=== PATIENT | female | born 1995 | race Caucasian/White ===

== ENCOUNTER 2025-09-25 12:47 | Outpatient (CLI) | payer BC, SELFPAY ==
--- NOTE | 2025-09-25 13:00 | CRLHL7_ITS ---
For Patients: As a result of the Century Cures Act, medical imaging exams and procedure reports are released immediately into your electronic medical record. You may view this report before your referring provider. If you have questions, please contact your health care provider. Indication: Unspecified intracranial injury with loss of consciousness. Technique: Multiplanar multisequence noncontrast MR images of the brain. Comparison: None. Findings: The ventricles and sulci are within normal limits for patient age. No mass effect or midline shift. No parenchymal signal abnormalities. No intracranial hemorrhage or pathologic extra-axial fluid collection. No diffusion restriction to suggest acute infarction. The major arterial flow voids of the skull base are preserved. Globes are symmetric. Minimal paranasal sinus mucosal thickening. The mastoid air cells are clear. Left temporomandibular joint degenerative changes associated with and reactive joint effusion. Impression: 1. No intracranial abnormality on this noncontrast exam. 2. Left temporomandibular joint degenerative changes associated with marrow edema and reactive joint effusion. Dictated by Neil Wahl MD @ 09/25/2025 5:22:04 PM (Electronically Signed)
--- NOTE | 2025-09-25 13:45 | CRLHL7_ITS ---
For Patients: As a result of the Century Cures Act, medical imaging exams and procedure reports are released immediately into your electronic medical record. You may view this report before your referring provider. If you have questions, please contact your health care provider. Indication: Unspecified intracranial injury with loss of consciousness. Technique: Multiplanar multisequence noncontrast MR images of the cervical spine. Comparison: None. Findings: Mild leftward cervical curvature. Mild reversal of the cervical lordosis. Vertebral heights maintained. No acute fracture or spondylolisthesis. No T1 hypointense lesions or marrow edema. The cervical cord is normal in signal intensity. C2-3 through C4-5: No spinal canal or neural foraminal narrowing. C5-6: Mild disc degeneration. Shallow, broad-based right central disc extrusion demonstrating caudal migration measuring 2 mm in short axis indents the cord and mildly narrows the spinal canal. No neural foraminal narrowing. C6-7: Disc degeneration. Annular bulge. No spinal canal or neural foraminal narrowing C7-T1: No spinal canal or neural foraminal narrowing. Impression: 1. At C5-6, shallow right central disc extrusion indents the cord and mildly narrows the spinal canal. 2. Mild reversal of the cervical lordosis. Dictated by Neil Wahl MD @ 09/25/2025 5:25:18 PM (Electronically Signed)
== END 2025-09-25 12:48 | disposition home or self-care (01) ==
LOC: MRI 12:48
PROVIDERS: PCP Family Medicine; Visit Provider Family Medicine
DX: S06.9XAA Unspecified intracranial injury with loss of consciousness status unknown, initial encounter (principal); M50.222 Other cervical disc displacement at C5-C6 level
CPT/HCPCS: 70551; 72141

== ENCOUNTER 2025-10-01 23:41 | Emergency (ER) | payer BC, SELFPAY ==
--- OUTSIDE RECORDS SUMMARY | 2025-10-01 23:44 | XMS_ITS | Clinical Summary ---
Author Organization [facility] Address [address] [place] [address] Care Team Providers Care Manager Oracle Database Name Role Phone Peter Bueno MD Primary Care Provider [phone] Allergies Active AllergyReactionsCriticalityNoted DateCommentsCitalopramMental Status Hgjbzq5107/22/2013 Anger and aggressiveness Nsaids (Non-Steroidal Anti-Inflammatory Drug)Other - Describe In Comment Field 09/04/2017 H/o gypsy-n-y gastric bypass. AVOID NSAIDs and aspirin due to risk of gastric and/or G-J anastomotic ulcers. If Tresa must be on short course of NSAIDs or aspirin, use enteric coated if possible and use PPI // Kourtney Price RN, Bariatric Nurse Clinician, [facility] 09/04/2017 [facility] Comment: H/o gypsy-n-y gastric bypass. AVOID NSAIDs and aspirin due to risk of gastric and/or G-J anastomotic ulcers. If Tresa must be on short course of NSAIDs or aspirin, use enteric coated if possible and use PPI // Kourtney Price RN, Bariatric Nurse Clinician, [facility] 09/04/2017 ; [facility] Reaction: Other - Describe In Comment Field Medications * This document contains information received from the source organization and may not represent a complete record from that organization. MedicationSigDispense QuantityRefillsLast FilledStart DateEnd DateStatus cloNIDine HCL 0.2 mg tablet Indications:Insomnia, unspecified typeTake 1 Tablet (0.2 mg) by mouth at bedtime. 30 Tablet 5Active Additional Information Patient not taking.Reported on 10/01/2025 melatonin 3 mg tablet Indications:Insomnia, idiopathicTAKE TWO TABLETS BY MOUTH EVERY EVENING AT BEDTIME 60 Tablet 5Active venlafaxine (EFFEXOR) 75 mg tablet Indications:KRISTY (generalized anxiety disorder),Depression, unspecified depression typeTake 1 Tablet (75 mg) by mouth two times daily. 60 Tablet 1105Active Additional Information Patient not taking.Reported on 10/01/2025 omeprazole (PRILOSEC) 40 mg Delayed-Release capsule Indications:Chronic GERDTake 1 Capsule (40 mg) by mouth once daily. 60 Capsule 5Active buPROPion HCL (smoking deter) 150 mg Tb12 Indications:Depression, unspecified depression typeTake 1 Tablet (150 mg) by mouth two times daily. Due for an office visit for further refills. Please call the clinic to schedule an appointment. 60 Tablet 5Active hydrOXYzine HCL (ATARAX) 25 mg tablet Indications:Depression, unspecified depression typeTake 1 Tablet (25 mg) by mouth three times daily. Due for an office visit for further refills. Please call the clinic to schedule an appointment. 90 Tablet 5Active hydrOXYzine HCL (ATARAX) 25 mg tablet Indications:Depression, unspecified depression typeTake 1 Tablet (25 mg) by mouth three times daily. Due for an office visit for further refills. Please call the clinic to schedule an appointment. 90 Tablet Discontinued(Reorder (E-cancel not sent)) buPROPion HCL (smoking deter) 150 mg Tb12 Indications:Depression, unspecified depression typeTake 1 Tablet (150 mg) by mouth two times daily. Due for an office visit for further refills. Please call the clinic to schedule an appointment. 60 Tablet Discontinued(Reorder (E-cancel not sent))Hospital, Clinic, or Other Facility Administered MedicationOrdered DoseRouteFrequencyStart DateEnd DateStatus levonorgestrel intrauterine device 1 Device (MIRENA) Indications:Evaluation regarding contraception options1 DeviceIUQ 5 YEARS 11/01/2017Active Active Problems Patient Care Coordination No te Formatting of this note migh t be different from the original. Nutrition order entered on 11/26/2017. Weight Management Manual Given 06/02/2016 Rosmery Mo, MS, RD, LD ProblemNoted DateDiagnosed DateAlcohol use disorder, moderate, in early aqwhntstz20/31/9847Aehgjyqissmp64/13/2017Vitamin B 12 oblyxrcqar21/13/2017S/P gastric qvtbae5008/31/2017Heavy apqveoz4908/05/2014Depression Resolved Problems ProblemNoted DateDiagnosed DateResolved DateEncounter for insertion of Mirena IUD Overview (11/01/2017): Placed 18 Morbid obesity with BMI of 40.0-44.9, adult Encounters DateTypeDepartmentCare DlljDcctolfgsae56/10/2025 2:40 PM CSTOffice Visit [place] [id number] [facility] [place] [address] Peter Bueno MD Follow Up (ED Follow up)10/01/2025 - 10/01/2025 7:20 PM [facility] [address] [place] [address] 10/01/20259764Lppcdp54/07/2025 10:01 PM WINDOWS MOBILE DEVELOPER - 09/28/2025 10:43 PM [facility] [address] [place] [address] Mary Gomes MD Right sided numbness (Primary Dx); Word finding difficulty Discharge Disposition: Home Self Care09/28/20252594Wljxup91/10/2025 9:00 AM WINDOWS MOBILE DEVELOPER Telemedicine [facility] [address] [place] [address] Peter Bueno MD Follow Up (1 month follow up)09/01/20254787Oqilte93/06/2025 10:40 AM CDTOffice Visit [facility] [address] [place] [address] Peter Bueno MD Medication Auzrmzaqnf98/06/5605Mgufpi79/03/2025Refill [facility] [address] [place] [address] Peter Bueno MD Refill Request (Bupropion Hcl (Smoking Deter), Hydroxyzine Hcl)07/11/2025Refill [facility] [address] [place] [address] Peter Bueno MD Refill Request (Melatonin)from Last 3 Months Immunizations ImmunizationAdministration DatesNext JegKVoB2505/01/2001,09/22/1997,1996, 1996,1996HIB HbOC (HibTITER)1996,1996,1996 Hepatitis A (Peds)08/05/2014,01/22/2014Hepatitis B (Adult)09/27/2017Hepatitis B (Peds)1996,1996,1996Hepatitis B, Uxcurdhrbea33/03/1997, 1996,1996Hib Conjugate, Isgelynadeq55/01/1997,1996,1996, 1996Human Papilloma Virus Quclfdt8701/22/2014,07/23/2013,01/25/2013 Inactivated Polio Mzcvoye1906/26/2001Influenza, ULM104/09/2019,08/29/2017, 09/07/2016,08/05/2014,07/23/2013Influenza, IIV4 (Age 6-35 Mos)07/05/2018, 07/23/2013MMR05/01/2001,09/22/1997Meningococcal Vaccine (Menactra)01/22/2014Oral Polio Kjmoeyw9711/25/1996,1996,1996Polio Virus, Ewbeqkhdipm04/04/2001, 1996,1996,1996Tdap110/29/2016,07/18/2007Tuberculin (PPD) 02/03/2016,12/14/2015Varicella Scdubpp6207/18/2007,05/28/2007,07/30/1997, 05/28/1997 Family History Medical HistoryRelationNameCommentsPsychiatric illnessBrother 1Depression Psychiatric illnessBrother 2DepressionDiabetesFatherGood HealthFather HyperlipidemiaFatherHypertensionFatherHeart DiseaseMaternal Grandfather HyperlipidemiaMaternal GrandfatherHypertensionMaternal GrandfatherHeart Disease Maternal GrandmotherHyperlipidemiaMaternal GrandmotherHypertensionMaternal GrandmotherPsychiatric illnessMotherDepressionHyperlipidemiaPaternal Grandfather HypertensionPaternal GrandfatherStrokePaternal GrandfatherDiabetesPaternal GrandmotherHyperlipidemiaPaternal GrandmotherHypertensionPaternal Grandmother RelationNameStatusCommentsBrother 1Brother 2Brother 3FatherMaternal Grandfather Maternal GrandmotherMotherPaternal GrandfatherPaternal Grandmother Social History Tobacco UseTypesPacks/DayYears UsedDateSmoking Tobacco: FormerCigarettes0.5 06/21/2015 - 12/21/2015Passive Smoke Exposure: PastSmokeless Tobacco: Never Tobacco Cessation:Counseling Given: Not Answered Comments:1 pack/ month Alcohol UseStandard Drinks/WeekCommentsNot Currently0 (1 standard drink = 0.6 oz pure alcohol)PHQ-2AnswerDate RecordedPHQ-2 TOTAL GQODK305Social ConnectionsAnswerDate RecordedDo you often feel lonely or isolated from those around you?Financial Resource StrainAnswerDate RecordedDifficulty of Paying Living Loaxiewz934/06/2025Difficulty of Paying Living Fiiqxhjh548/06/2025 Food InsecurityAnswerDate RecordedDo you worry your food will run out before you are able to buy more?Transportation NeedsAnswerDate RecordedDoes lack of transportation keep you from medical appointments?Does lack of transportation keep you from work, meetings or getting things that you need?1 07/28/2025Housing StabilityAnswerDate RecordedWhat is your housing situation today?Interpersonal SafetyAnswerDate RecordedAre you being hit, kicked, pushed or yelled at (see row info)?No09/28/2025Interpersonal Safety Abuse 12 - 18Not on file09/28/2025Interpersonal Safety Ambulatory Vulnerability Not on file09/28/2025UtilitiesAnswerDate RecordedDo you have trouble paying for utilities (for example, heat, electricity, water, phone)? CommentsNoSex and Gender InformationValueDate RecordedSex Assigned at BirthNot on fileLegal BcqVhoqcb14/25/2013 11:24 PM CDTGender IdentityNot on fileSexual OrientationNot on file Obstetrics History GravidaParaTermPretermABIABSABEctopicMultipleLivingLive [id number] OutcomeGATotal LaborLabor/2nd/6uhXfaikiJroWfoqTijkWCZKnhL7I0CjyiOivoQghizci Last Filed Vital Signs Vital SignReadingTime TakenCommentsBlood Utqzlxtm915/7210/01/2025 3:08 PM WINDOWS MOBILE DEVELOPER Ntkuf70704/10/2025 3:08 PM RUVBckttsfrofh25.7 ??C (98 ??F)10/01/2025 3:08 PM WINDOWS MOBILE DEVELOPER Respiratory Pupi022010/01/2025 3:08 PM CSTOxygen Whkywxytsf51%10/01/2025 3:08 PM CSTInhaled Oxygen Concentration--Mrxbao01.6 kg (160 lb)09/28/2025 10:28 PM WINDOWS MOBILE DEVELOPER Eeytru539 cm (5' 3)09/28/2025 10:28 PM CSTBody Mass Index28.34111/29/2024 10:28 PM WINDOWS MOBILE DEVELOPER Plan of Treatment Health MaintenanceDue DateLast DoneCommentsPneumococcal series for age 6-49 (1 of 2 - PCV)2015COVID-19 vaccine series (1 - 2024- season)2025 Influenza Vaccine (#1), 07/05/2018, 08/29/2017, Additional history existsBMI (ht and wt on same day) for age 18+06/09/426268/06/2025, 01/07/2025, 12/13/2024, Additional history existsDepression screening for age 12+61, 03/14/2025, 02/15/2025, Additional history exists Tetanus wfwricy68/07/960234/04/2017, 07/18/2007Pap test for age 21-65012/13/2027 12/13/2024, 12/13/2024, 11/01/2017HPV series for age 9-88Zgmykhjcl62/02/2014, 07/23/2013, 01/25/2013Hepatitis B series for 19+Maaihtmdh71/06/2017, 1996, 1996, Additional history existsHIV for age 15-36Wcnfmjxrb58/25/2025, 10/23/2019 ([facility]Hepatitis C screening for age 18-79 Ftgxtkked56/25/2025, 10/23/2019 ([facility] Medical Devices ImplantedTypeAreaManufacturerDevice IdentifierShelf Expiration DateModel / Serial / LotMesh Ventral 45 Seam[employer] [place] - [id number] Implanted:Qty: 3 on 08/31/2017 by April, [facility]: AbdomenW L [id number]# / / [id number] Procedures Procedure NamePriorityDate/TimeAssociated DiagnosisCommentsBASIC METABOLIC PANEL Xbggzcy3907/28/2025 11:10 AM CDT S/P gastric bypass VITAMIN B1 (THIAMINE) HUWRMCqqmzvc44/06/2025 11:10 AM CDT S/P gastric bypass VITAMIN N25Bzrbpgt84/06/2025 11:10 AM CDT S/P gastric bypass VITAMIN D 25 (DEFICIENCY)Idrnnsm3207/28/2025 11:10 AM CDT S/P gastric bypass HLIOKFTFYhumltv78/06/2025 11:10 AM CDT S/P gastric bypass BKBAZVXTEGCvqrkbf33/06/2025 11:10 AM CDT S/P gastric bypass ANTI HIV 1/6Clhxwbl84/25/2025 3:35 PM CDT Routine screening for STI (sexually transmitted infection) ANTI WTSObylsnr35/25/2025 3:35 PM CDT Routine screening for STI (sexually transmitted infection) HPV HIGH CKYKZrtqbfd88/21/2025 3:40 PM WINDOWS MOBILE DEVELOPER Screening for cervical cancer from Last 3 Months or Most Recently Relevant to Health Maintenance Results * VITAMIN B1 (THIAMINE) BLOOD (07/28/2025 11:10 AM CDT)ComponentValueRef Range Test MethodAnalysis TimePerformed AtPathologist SignatureVITAMIN B1 WHL BLD 196.166.5 - 200.0 nmol/L1 9:08 AM CDTLABCORP [facility])Specimen (Source)Anatomical Location / Laterality Collection Method / VolumeCollection TimeReceived TimeBloodBLOOD SPECIMEN / UnknownVenipuncture / Udtipya3107/28/2025 11:10 AM CDT1 11:[address] [facility] ([facility]) - 08/03/2025 9:08 AM CDT Test(s) 053093-Ezw. B1, Whole Blood was developed and its performance characteristics determined by [facility]. It has not been cleared or approved by the Food and Drug Administration. Performed at: ??[address] - [address] ??[id number] Dance Hall Hostess: Stacy Hampton MD, Phone: ??[phone] Authorizing ProviderResult TypeResult StatusPeter Bueno MDSEND OUTSFinal ResultPerforming OrganizationAddressCity/State/ZIP CodePhone Number [facility] ([facility] [address] [place] [address], * VITAMIN D 25 (DEFICIENCY) (07/28/2025 11:10 AM CDT)ComponentValueRef RangeTest MethodAnalysis TimePerformed AtPathologist SignatureVITAMIN D TOTAL52.430.0 - 100.0 ng/mL07/28/2025 3:00 PM [facility] LABORATORYSpecimen (Source) Anatomical Location / LateralityCollection Method / VolumeCollection Time Received TimeBloodBLOOD SPECIMEN / UnknownVenipuncture / Spuqhui7607/28/2025 11:10 AM CDT1 11:13 AM CDT Narrative [facility] - 07/28/2025 3:00 PM CDT Deficiency: < 20 ng/mL ? Insufficiency: ? 20 - 30 ng/mL ? Optimum Level: ? 30 - 100 ng/mL ?? Possible Toxicity: > 100 ng/mL Authorizing ProviderResult TypeResult StatusPeter Bueno MDSEND OUTSFinal ResultPerforming OrganizationAddressCity/State/ZIP CodePhone Number [facility] [address] [place] [address] * HEMOGLOBIN (07/28/2025 11:10 AM CDT)ComponentValueRef RangeTest MethodAnalysis TimePerformed AtPathologist LadcgsfnxAPFUYBRROK61.012.0 - 16.0 g/dL07/28/2025 11:16 AM [facility] VIBHEQVMDYLKH43.080.0 - 100.0 fL07/28/2025 11:16 AM [facility] LABORATORYSpecimen (Source)Anatomical Location / LateralityCollection Method / VolumeCollection TimeReceived Time BloodBLOOD SPECIMEN / UnknownVenipuncture / Oiyrcmw3507/28/2025 11:10 AM CDT 07/28/2025 11:13 AM CDT Narrative Authorizing ProviderResult TypeResult StatusPeter Bueno MDHEMATOLOGYFinal ResultPerforming OrganizationAddressCity/State/ZIP CodePhone Number [facility] [address] [place] [address] * FERRITIN (07/28/2025 11:10 AM CDT)ComponentValueRef RangeTest MethodAnalysis TimePerformed AtPathologist UecjrilgaJFMOKGJB58.106.24 - 137.00 ng/mL 07/28/2025 3:18 PM [facility] LABORATORYSpecimen (Source)Anatomical Location / LateralityCollection Method / VolumeCollection TimeReceived Time BloodBLOOD SPECIMEN / UnknownVenipuncture / Twhdchn0907/28/2025 11:10 AM CDT 07/28/2025 11:13 AM CDT Narrative Authorizing ProviderResult TypeResult StatusPeter Bueno MDCHEMISTRYFinal ResultPerforming OrganizationAddressCity/State/ZIP CodePhone Number [facility] [address] [place] [address] * VITAMIN B12 (07/28/2025 11:10 AM CDT)ComponentValueRef RangeTest Method Analysis TimePerformed AtPathologist SignatureVITAMIN [id number] - 931 pg/mL 07/28/2025 3:33 PM [facility] LABORATORYSpecimen (Source)Anatomical Location / LateralityCollection Method / VolumeCollection TimeReceived Time BloodBLOOD SPECIMEN / UnknownVenipuncture / Yuvkoew7607/28/2025 11:10 AM CDT 07/28/2025 11:13 AM CDT Narrative Authorizing ProviderResult TypeResult StatusPeter Bueno MDCHEMISTRYFinal ResultPerforming OrganizationAddressCity/State/ZIP CodePhone Number [facility] [address] [facility] [place] [address] * BASIC METABOLIC PANEL (07/28/2025 11:10 AM CDT)ComponentValueRef RangeTest MethodAnalysis TimePerformed AtPathologist IvoaqowodTUADEH715260 - 145 mmol/L 07/28/2025 2:36 PM [facility] LABORATORYPOTASSIUM3.73.5 - 5.1 mmol/L 07/28/2025 2:36 PM [facility] VTWXYEOQYOIWRMWPFL48900 - 107 mmol/L 07/28/2025 2:36 PM [facility] LABORATORYCO2,UNWNI7550 - 30 MEq/L 07/28/2025 2:36 PM [facility] LABORATORYANION GAP72 - 121 2:36 PM [facility] PWJKUSSXZEYNHZXVR2539 - 106 mg/dL07/28/2025 2:36 PM [facility] LABORATORYCALCIUM9.08.4 - 10.2 mg/dL07/28/2025 2:36 PM [facility] OAFBYERAWPUAN55 - 20 mg/dL07/28/2025 2:36 PM [facility] LABORATORYCREATININE0.60.5 - 1.1 mg/dL07/28/2025 2:36 PM [facility] LABORATORYBUN/CREAT CHILN797 - 221 2:36 PM [facility] LABORATORYeGFR>90>90 mL/min/1.75b27307/28/2025 2:36 PM [facility] LABORATORYComment:As of 01/04/2022, eGFR is calculated by the CKD-EPI creatinine equation without race adjustment. eGFR can be influenced by muscle mass, exercise, and diet. The reported eGFR is an estimation only andis only applicable if the renal function is stable.Specimen (Source)Anatomical Location / LateralityCollection Method / VolumeCollection TimeReceived Time BloodBLOOD SPECIMEN / UnknownVenipuncture / Rjwtbgx9207/28/2025 11:10 AM CDT 07/28/2025 11:13 AM CDT Narrative Authorizing ProviderResult TypeResult StatusPeter Bueno MDCHEMISTRYFinal ResultPerforming OrganizationAddressCity/State/ZIP CodePhone Number [facility] [address] [place] [address] * ANTI HCV (02/14/2025 3:35 PM CDT)ComponentValueRef RangeTest MethodAnalysis TimePerformed AtPathologist SignatureHEPATITIS C ANTIBODYNegativeNegative 02/17/2025 10:18 AM [facility] LABORATORYComment:Anti-HCV IgG not detected. Patient is presumed not to be infected with HCV.Specimen (Source) Anatomical Location / LateralityCollection Method / VolumeCollection Time Received TimeBloodBLOOD SPECIMEN / UnknownVenipuncture / Oeurwwb2102/14/2025 3:35 PM CDT02/14/2025 3:40 PM CDT Narrative Authorizing ProviderResult TypeResult StatusPeter Bueno MDSEND OUTSFinal ResultPerforming OrganizationAddressCity/State/ZIP CodePhone Number [facility] [address] [facility] [place] [address] * ANTI HIV 1/2 (02/14/2025 3:35 PM CDT)ComponentValueRef RangeTest Method Analysis TimePerformed AtPathologist SignatureHIV-1/HIV-2 ANTIBODYNegative Ocmoadop88/25/2025 5:03 PM [facility] LABORATORYComment:Specimen is negative for anti-HIV-1 and anti-HIV-2.Specimen (Source)Anatomical Location / LateralityCollection Method / VolumeCollection TimeReceived TimeBloodBLOOD SPECIMEN / UnknownVenipuncture / Dgpnyrd1602/14/2025 3:35 PM CDT02/14/2025 3:40 PM CDT Narrative Authorizing ProviderResult TypeResult StatusPeter Bueno MDSEND OUTSFinal ResultPerforming OrganizationAddressCity/State/ZIP CodePhone Number [facility] [address] [place] [address] * HPV HIGH RISK (12/13/2024 3:40 PM WINDOWS MOBILE DEVELOPER)ComponentValueRef RangeTest Method Analysis TimePerformed AtPathologist SignatureTYPE 16NegativeNegative 12/17/2024 1:56 PM [facility] LABORATORYTYPE 18 WwcikuzpEtwjhmti44/25/2025 1:56 PM [facility] LABORATORYOTHER HIGH RISK NIFQHZeswgmumMgvkkaig13/25/2025 1:56 PM [facility] LABORATORYSpecimen (Source)Anatomical Location / LateralityCollection Method / VolumeCollection TimeReceived TimeOther (Cervical)Non-Blood / Kkreyxv9212/13/2024 3:40 PM CST12/15/2024 10:18 AM WINDOWS MOBILE DEVELOPER Narrative [facility] - 12/17/2024 1:56 PM WINDOWS MOBILE DEVELOPER HPV types 16, 18, 31, 33, 35, 39, 45, 51, 52, 56, 58, 59, 66 and 68 DNA were undetectable or below the pre-set threshold. Methodology: [facility] 4800 HPV Test Authorizing ProviderResult TypeResult StatusIbeth Gonzales DOMICROBIOLOGYFinal ResultPerforming OrganizationAddressCity/State/ZIP CodePhone Number [facility] [address] [place] [address], from Last 3 Months or Most Recently Relevant to Health Maintenance Insurance * Guarantor: Reji MCADAMS TypeRelation to PatientDate of BirthPhone Billing AddressPersonal/OhsaknJeccbt16/28/1964 [id number] [address], [place] [address] Advance Directives * Full Code (Latest Code Status on File) Date ActivatedDate HkwqawtlgwsOmpmdlsi38/9/2017 10:29 AM09/01/2017 4:20 PM * Full Code Date ActivatedDate ZyzfmnxnazpHwsssrxl89/9/2017 6:04 AM08/31/2017 10:29 AM * Full Code Date ActivatedDate VhuuafndihwIwcmztup15/17/2013 7:37 AM10/08/2013 1:03 PM Care Teams Team MemberRelationshipSpecialtyStart DateEnd Date Peter Bueno MD [address] [place] [address] PCP - GeneralFamily Practice04/21/25
--- NOTE | 2025-10-01 23:52 | ED.ABDPAIN ---
HPI - Abdominal Pain General Time Seen by Provider: 00:18 Date Seen: 10/02/25 Chief Complaint: Abdominal Pain Stated Complaint: shortness of breath/R sided rib pain Time Seen by Provider: 10/01/25 23:52 Source: patient Mode of arrival: ambulatory History of Present Illness HPI narrative: Tresa is a 30-year-old female with a past medical history of depression, anxiety, GERD, PCOS, alcohol use disorder, bipolar affective disorder who presents the emergency department for evaluation of right sided chest/abdominal pain and shortness of breath. Patient complains of right sided rib/chest/abdominal pain that has been ongoing since last Monday. Patient reports symptoms progressively worsening over the past few days into this a she has severe pain, as well as difficulty breathing, and feeling bloated. Patient reports that this evening she felt a pop in her right lower chest/abdomen/ribs and tasted blood. Patient reports that after that she had significant improvement/resolution of pain however reports was concerned due to her symptoms so came in for evaluation. Patient denies any fever, chills, chest pain, abdominal pain, nausea, vomiting, diarrhea, denies any cough or cold-like symptoms. No other acute complaints. Per chart review patient had MRI of the brain and MRI cervical spine without contrast on 09/25/2025 MRI brain Impression: 1. No intracranial abnormality on this noncontrast exam. 2. Left temporomandibular joint degenerative changes associated with marrow edema and reactive joint effusion. MRI cervical spine Impression: 1. At C5-6, shallow right central disc extrusion indents the cord and mildly narrows the spinal canal. 2. Mild reversal of the cervical lordosis. Related Data Home Medications ?Medication ?Instructions ?Recorded ?Confirmed cholecalciferol (vitamin D3) 125 125 mcg PO QDAY 05/24/22 09/10/25 mcg (5,000 unit) tablet ferrous sulfate 325 mg (65 mg 325 mg PO DAILY 05/24/22 09/10/25 iron) tablet levonorgestrel (Mirena) 1 device intrauterine ONCE 07/11/22 09/10/25 Previous Rx's ?Medication ?Instructions ?Recorded clonidine HCl 0.2 mg tablet 0.2 mg PO QHS #90 tabs 09/25/24 gabapentin 300 mg capsule 300 - 600 mg (1 - 2 x 300 mg) PO 11/19/25 QHS #60 caps vilazodone 40 mg tablet (Viibryd) See Rx Instructions PO QDAY #30 09/10/25 tabs Allergies Allergy/AdvReac Type Severity Reaction Status Date / Time citalopram Allergy Mild aggression Verified 10/01/25 23:53 NSAIDS (Non-Steroidal Allergy Unknown avoids due Verified 10/01/25 23:53 Anti-Inflamma to gastric bypass Review of Systems Narrative Past medical history, past surgical history, medications, allergies, family history, and social history were reviewed with the patient. No additional pertinent items. A medically appropriate review of systems was performed with pertinent positives and negatives noted in HPI, all other systems negative. [facility] Medical History (Updated 10/02/25 @ 01:13 by Marlene Drake MD) GERD (gastroesophageal reflux disease) ?K21.9 - Gastro-esophageal reflux disease without esophagitis (ICD-10) PCOS (polycystic ovarian syndrome) ?E28.2 - Polycystic ovarian syndrome (ICD-10) Heavy periods ?N92.0 - Excessive and frequent menstruation with regular cycle (ICD-10) Alcohol use disorder ?F10.90 - Alcohol use, unspecified, uncomplicated (ICD-10) Major depression, recurrent ?F33.9 - Major depressive disorder, recurrent, unspecified (ICD-10) Generalized anxiety disorder ?F41.1 - Generalized anxiety disorder (ICD-10) Acne ?L70.9 - Acne, unspecified (ICD-10) Chronic daily headache ?R51.9 - Headache, unspecified (ICD-10) Obesity ?E66.9 - Obesity, unspecified (ICD-10) Migraine headache ?G43.909 - Migraine, unspecified, not intractable, without status migrainosus (ICD-10) Cobalamin deficiency (09/04/17) ?E53.8 - Deficiency of other specified B group vitamins (ICD-10) Bipolar affective disorder ?F31.9 - Bipolar disorder, unspecified (ICD-10) Attention deficit disorder of adult with hyperactivity ?F90.9 - Attention-deficit hyperactivity disorder, unspecified type (ICD-10) Surgical History (Updated 09/15/25 @ 00:33 by Hardeep Miguel MD) History of tonsillectomy and adenoidectomy (2012) ?Z90.89 - Acquired absence of other organs (ICD-10) History of laparoscopic cholecystectomy (2010) ?Z90.49 - Acquired absence of other specified parts of digestive tract (ICD-10) History of gastric bypass (2017) ?Z98.84 - Bariatric surgery status (ICD-10) Family History (Updated 09/10/25 @ 12:22 by Sara Mullins) Paternal Grandfather Stroke High cholesterol High blood pressure Mother Depression Brother Depression Maternal Grandmother Heart disease High cholesterol High blood pressure Paternal Grandmother Heart disease Type 2 diabetes mellitus High cholesterol High blood pressure Father Type 2 diabetes mellitus High blood pressure High cholesterol Brother Depression Maternal Grandfather Heart disease High cholesterol High blood pressure Social History (Updated 09/25/25 @ 11:48 by Barbara Dougherty ~ [facility]) Narrative: , RN, non-smoker, no EtOH, 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 [facility] What is your current living situation?: I presently have a place to live Problems where you live: no known problems In the past 12 months, utilities in danger of being shut off: no In past 12 months, lack of transportation kept you from medical appts, meetings, work, or getting things needed for daily living: no In the past 12 mos, have been you worried that your food would run out before you had money to buy more?: never true In the past 12 mos, the food you bought just didn't last and you didn't have money to buy more?: never true Highest level of school completed/degree received: Associate degree: occupational, technical, vocational program Physical activity type: none Smoking Status: Never smoker How often do you have a drink containing alcohol: never How often do you have six or more drinks on one occasion: Never AUDIT-C Alcohol total score: 0 Non-prescribed substance use: marijuana (any form) Are you now , , , , never or living with a partner: Social isolation score (0-1 are the most socially isolated patients): 1 How often does anyone, including family, friends and others, physically hurt you: never How often does anyone, including family, friends and others, insult or talk down to you: rarely How often does anyone, including family, friends and others, threaten you with harm: never How often does anyone, including family, friends and others, scream or curse at you: rarely Do you think of yourself as: straight/heterosexual Gender Identity: female Are you currently sexually active: Yes Health Related Social Needs: Other personal risk factors, not elsewhere classified (Z91.89) Exam Narrative: Exam Narrative: General: Afebrile, no acute distress HEENT: Normocephalic, atraumatic, conjunctiva normal. MMM Neck: non-tender, supple Cardio: regular rate. regular rhythm Resp: Normal work of breathing, no respiratory distress, lungs clear bilaterally, no wheezing, rhonchi, rales Chest/Back: no visual signs of trauma, no midline tenderness, no CVA tenderness Abdomen: soft, non distension, no tenderness, no peritoneal signs Neuro: alert and fully oriented. CN II-XII grossly intact. Grossly normal strength and sensation in all extremities. MSK: no deformities. Normal range of motion Integumentary/Skin: no rash visualized, normal color, scattered ecchymosis Psych: normal affect, normal behavior Const: Vital Signs, click to edit/add: Vital Signs - 24 hr 10/01/25 23:53 Temperature 96.9 F L Pulse Rate [Pulse Oximeter] 115 H Respiratory Rate 24 Blood Pressure [Ri ght Upper Arm] 151/95 H Pulse Oximetry 100 Oxygen Delivery Me thod Room Air Course Vital Signs Vital signs: Initial Vital Signs Temperature 96.9 F L 10/01/25 23:53 Temperature Source Temporal Artery Scan 10/01/25 23:53 Pulse Rate 115 H 10/01/25 23:53 Respiratory Rate 24 10/01/25 23:53 Blood Pressure 151/95 H 10/01/25 23:53 Blood Pressure Mean 113 H 10/01/25 23:53 Blood Pressure Position High-Fowlers 10/01/25 23:53 Pulse Oximetry 100 10/01/25 23:53 Oxygen Delivery Method Room Air 10/01/25 23:53 Vital Signs Temperature 96.9 F L 10/01/25 23:53 Pulse Rate 115 H 10/01/25 23:53 Respiratory Rate 24 10/01/25 23:53 Blood Pressure 151/95 H 10/01/25 23:53 Pulse Oximetry 100 10/01/25 23:53 Oxygen Delivery Method Room Air 10/01/25 23:53 Temperature 96.9 F L 10/01/25 23:53 Pulse Rate 115 H 10/01/25 23:53 Respiratory Rate 24 10/01/25 23:53 Blood Pressure 151/95 H 10/01/25 23:53 Pulse Oximetry 100 10/01/25 23:53 Oxygen Delivery Method Room Air 10/01/25 23:53 MDM - Abdominal Pain MDM Narrative Medical decision making narrative: Tresa is a 30-year-old female with a past medical history of depression, anxiety, GERD, PCOS, alcohol use disorder, bipolar affective disorder who presents the emergency department for evaluation of right sided chest/abdominal pain and shortness of breath. Upon arrival patient is nontoxic appearing, afebrile, in distress. Patient hypertensive upon arrival blood pressure 151/95, heart rate 115, oxygen 100% on room air. Patient here with right-sided rib pain over the past few days however reports improvement of symptoms since arrival to the emergency department. Overall patient nontoxic appearing, no respiratory distress. Will start with chest x-ray and re-evaluate. I personally reviewed interpreted chest x-ray which demonstrates no acute pulmonary processes, no evidence of focal consolidation, pleural effusion, pneumothorax, rib fractures. I discussed results with patient. Patient continues to be pain-free. At this time no emergent indication for laboratory tests or further imaging at this time. I discussed at length and encourage patient follow-up closely with her primary care provider. Per chart review patient has neurology referral in place. Plan for discharge with continued supportive care, close outpatient follow-up strict return precautions discussed. Patient and spouse understand agrees the plan. Medical Records Attestation: I reviewed the patient's medical records. Imaging Data Chest x-ray: Attestation: I have reviewed the pertinent imaging results. Radiologist's impression: Patient: Tresa Branham MR#: [id number] : 1995 Acct:[id number] Loc: ED Service Date: 10/02/[address]: Ordering Physician: Marlene Drake M.D. Date of Service: 10/02/25 Procedure(s): XR chest 2V Accession Number(s): [id number] cc: Marlene Drake M.D.; Provider,Not a Local~ For Patients: As a result of the Cures Act, medical imaging exams and procedure reports are released immediately into your electronic medical record. You may view this report before your referring provider. If you have questions, please contact your health care provider. INDICATION: Right-sided chest pain, shortness of breath. TECHNIQUE: Chest 2 views. COMPARISON: None. FINDINGS: Cardiovascular and mediastinum: Heart size and vasculature are normal in caliber and appearance. Lungs and pleural spaces: No focal consolidation, pleural effusion, or pneumothorax. Bones and soft tissues: Surgical clips in the upper abdomen. Otherwise, unremarkable for age. IMPRESSION: No evidence of an acute pulmonary process. Dictated by Ike Chaudhari MD @ 10/02/2025 12:52:32 AM (Electronically Signed) Discharge Plan Discharge Clinical Impression: Right-sided chest pain Patient Disposition: Home, Self-Care Condition: Stable Additional Instructions: Please follow-up with your primary care provider in the next 3-5 days for further evaluation, and follow-up. Please call to schedule appointment. Please continue on medications. Please return to the emergency department for any worsening symptoms. It is a pleasure taking care of you today. We hope you feel better soon. Prescriptions: No Action ferrous sulfate 325 mg (65 mg iron) tablet 325 mg PO DAILY cholecalciferol (vitamin D3) 125 mcg (5,000 unit) tablet 125 mcg PO QDAY vilazodone [Viibryd] 40 mg tablet See Rx Instructions PO QDAY Qty: 30 1RF Rx Instructions: orally every day; must administer with a meal/food, 1/2 QD x 2 weeks then 1 QD gabapentin 300 mg capsule 300 - 600 mg PO QHS Qty: 60 1RF Mirena 20 mcg/24 hours (7 yrs) 52 mg intrauterine device 1 device intrauterine ONCE Rx Instructions: as a single dose clonidine HCl 0.2 mg tablet 0.2 mg PO QHS Qty: 90 3RF Follow Up/Referrals: Hardeep Miguel MD [Staff Physician, Family Practice] Stand Alone Forms: [employer] Info Instructions
[2025-10-01 23:53] VITALS: BP 151/95; PULSE 115; RESP 24; TEMP 36.1; O2SAT 100; BMI 27.5
--- NOTE | 2025-10-02 00:36 | CRLHL7_ITS ---
For Patients: As a result of the Century Cures Act, medical imaging exams and procedure reports are released immediately into your electronic medical record. You may view this report before your referring provider. If you have questions, please contact your health care provider. INDICATION: Right-sided chest pain, shortness of breath. TECHNIQUE: Chest 2 views. COMPARISON: None. FINDINGS: Cardiovascular and mediastinum: Heart size and vasculature are normal in caliber and appearance. Lungs and pleural spaces: No focal consolidation, pleural effusion, or pneumothorax. Bones and soft tissues: Surgical clips in the upper abdomen. Otherwise, unremarkable for age. IMPRESSION: No evidence of an acute pulmonary process. Dictated by Ike Chaudhari MD @ 10/02/2025 12:52:32 AM (Electronically Signed)
--- OUTSIDE RECORDS SUMMARY | 2025-10-02 00:45 | XMS_ITS | Clinical Summary ---
Author Organization [facility] Address [address] [place] [address] Care Team Providers Care Public Health Clinical Nurse Specialist Name Role Phone Peter Bueno MD Primary Care Provider [phone] Allergies Active AllergyReactionsCriticalityNoted DateCommentsCitalopramMental Status Qdzngd0907/22/2013 Anger and aggressiveness Nsaids (Non-Steroidal Anti-Inflammatory Drug)Other - Describe In Comment Field 09/04/2017 H/o gypsy-n-y gastric bypass. AVOID NSAIDs and aspirin due to risk of gastric and/or G-J anastomotic ulcers. If Tresa must be on short course of NSAIDs or aspirin, use enteric coated if possible and use PPI // Kourtney Price RN, Bariatric Nurse Clinician, [facility] 09/04/2017 [facility] Comment: H/o gypsy-n-y gastric bypass. AVOID NSAIDs and aspirin due to risk of gastric and/or G-J anastomotic ulcers. If Tresa must be on short course of NSAIDs or aspirin, use enteric coated if possible and use PPI // Kourtney Price RN, Bariatric Nurse Clinician, [facility] 09/04/2017 ; [facility] Reaction: Other - Describe In [...] DateDiagnosed DateAlcohol use disorder, moderate, in early lzlsgpgre37/31/3663Uncqhzkhlopn06/13/2017Vitamin B 12 nughsmhsaz35/13/2017S/P gastric ylvxhp2208/31/2017Heavy aiinvyt0608/05/2014Depression Resolved Problems ProblemNoted DateDiagnosed DateResolved DateEncounter for insertion of Mirena IUD Overview (11/01/2017): Placed 18 Morbid obesity with BMI of 40.0-44.9, adult Encounters DateTypeDepartmentCare FvycQpkkjfxnees44/10/2025 2:40 PM CSTOffice Visit [place] [id number] [place] [address] [facility] [place] [address] Peter Bueno MD Follow Up (ED Follow up)10/01/2025 - 10/01/2025 7:20 PM [facility] [address] [place] [address] 10/01/20254699Iyrebp31/07/2025 10:01 PM GEOSPATIAL INFORMATION SCIENTIST - 09/28/2025 10:43 PM [facility] [address] [place] [address] Mary Gomes MD Right sided numbness (Primary Dx); Word finding difficulty Discharge Disposition: Home Self Care09/28/20254034Hmgtlt92/10/2025 9:00 AM GEOSPATIAL INFORMATION SCIENTIST Telemedicine [facility] [address] [place] [address] Peter Bueno MD Follow Up (1 month follow up)09/01/20255178Pzniqr93/06/2025 10:40 AM CDTOffice Visit [facility] [address] [place] [address] Peter Bueno MD Medication Azbhabmoee82/06/9510Dsoyaa64/03/2025Refill [facility] [address] [place] [address] Peter Bueno MD Refill Request (Bupropion Hcl (Smoking Deter), Hydroxyzine Hcl)07/11/2025Refill [facility] [address] [place] [address] Peter Bueno MD Refill Request (Melatonin)from Last 3 Months Immunizations ImmunizationAdministration DatesNext WhyWJrZ9805/01/2001,09/22/1997,1996, 1996,1996HIB HbOC (HibTITER)1996,1996,1996 Hepatitis A (Peds)08/05/2014,01/22/2014Hepatitis B (Adult)09/27/2017Hepatitis B (Peds)1996,1996,1996Hepatitis B, Idoyoepvagw65/03/1997, 1996,1996Hib Conjugate, Ieiekfckybo96/01/1997,1996,1996, 1996Human Papilloma Virus Qlgzhje0801/22/2014,07/23/2013,01/25/2013 Inactivated Polio Bflhfnm0806/26/2001Influenza, OIZ113/09/2019,08/29/2017, 09/07/2016,08/05/2014,07/23/2013Influenza, IIV4 (Age 6-35 Mos)07/05/2018, 07/23/2013MMR05/01/2001,09/22/1997Meningococcal Vaccine (Menactra)01/22/2014Oral Polio Tytkerl8511/25/1996,1996,1996Polio Virus, Bnchvdovict75/04/2001, 1996,1996,1996Tdap110/29/2016,07/18/2007Tuberculin (PPD) 02/03/2016,12/14/2015Varicella Xcsxcqe7407/18/2007,05/28/2007,07/30/1997, 05/28/1997 Family History Medical HistoryRelationNameCommentsPsychiatric illnessBrother 1Depression [...] = 0.6 oz pure alcohol)PHQ-2AnswerDate RecordedPHQ-2 TOTAL MDNSX202Social ConnectionsAnswerDate RecordedDo you often feel lonely or isolated from those around you?Financial Resource StrainAnswerDate RecordedDifficulty of Paying Living Goybgbcc005/06/2025Difficulty of Paying Living Qsvhskwn131/06/2025 Food InsecurityAnswerDate RecordedDo you worry your food [...] InformationValueDate RecordedSex Assigned at BirthNot on fileLegal DnvGjzoex90/25/2013 11:24 PM CDTGender IdentityNot on fileSexual OrientationNot on file Obstetrics History GravidaParaTermPretermABIABSABEctopicMultipleLivingLive [id number] OutcomeGATotal LaborLabor/2nd/6coBbhgruMuoPxumUrkcUYWQxzZ1D4HvcbSfeiRiropnh Last Filed Vital Signs Vital SignReadingTime TakenCommentsBlood Opxgfbtt051/7210/01/2025 3:08 PM GEOSPATIAL INFORMATION SCIENTIST Pcmin96872/10/2025 3:08 PM TTQPxzjzvbmfix81.7 ??C (98 ??F)10/01/2025 3:08 PM GEOSPATIAL INFORMATION SCIENTIST Respiratory Yjej524110/01/2025 3:08 PM CSTOxygen Fndrbbcvyq94%10/01/2025 3:08 PM CSTInhaled Oxygen Concentration--Ayyycb99.6 kg (160 lb)09/28/2025 10:28 PM GEOSPATIAL INFORMATION SCIENTIST Vkusup081 cm (5' 3)09/28/2025 10:28 PM CSTBody Mass Index28.34111/29/2024 10:28 PM GEOSPATIAL INFORMATION SCIENTIST Plan of Treatment Health MaintenanceDue DateLast DoneCommentsPneumococcal series for age 6-49 (1 of 2 - PCV)2015COVID-19 vaccine series (1 - 2024- season)2025 Influenza Vaccine (#1), 07/05/2018, 08/29/2017, Additional history existsBMI (ht and wt on same day) for age 18+06/09/083182/06/2025, 01/07/2025, 12/13/2024, Additional history existsDepression screening for age 12+61, 03/14/2025, 02/15/2025, Additional history exists Tetanus jeuikdi74/07/655309/04/2017, 07/18/2007Pap test for age 21-65012/13/2027 12/13/2024, 12/13/2024, 11/01/2017HPV series for age 9-60Ppekhpbar10/02/2014, 07/23/2013, 01/25/2013Hepatitis B series for 19+Gzfxyvlsd33/06/2017, 1996, 1996, Additional history existsHIV for age 15-15Noagnccuo54/25/2025, 10/23/2019 ([facility]Hepatitis C screening for age 18-79 Cowmcvxui70/25/2025, 10/23/2019 ([facility]) Medical Devices ImplantedTypeAreaManufacturerDevice IdentifierShelf Expiration DateModel / Serial / LotMesh Ventral 45 Seamguard [place] - [id number] Implanted:Qty: 3 on 08/31/2017 by April, [facility]: AbdomenW L [id number] / / [id number] Procedures Procedure NamePriorityDate/TimeAssociated DiagnosisCommentsBASIC METABOLIC PANEL Ihqzpyr7207/28/2025 11:10 AM CDT S/P gastric bypass VITAMIN B1 (THIAMINE) ZTWPOTuxwtyf01/06/2025 11:10 AM CDT S/P gastric bypass VITAMIN V76Ojdtukl61/06/2025 11:10 AM CDT S/P gastric bypass VITAMIN D 25 (DEFICIENCY)Fkfljfd3707/28/2025 11:10 AM CDT S/P gastric bypass CWKZZZZTIaelfqw54/06/2025 11:10 AM CDT S/P gastric bypass BUFFAXMQEGDpmsrer18/06/2025 11:10 AM CDT S/P gastric bypass ANTI HIV 1/7Uvozcyt78/25/2025 3:35 PM CDT Routine screening for STI (sexually transmitted infection) ANTI IQDXaqbjqq22/25/2025 3:35 PM CDT Routine screening for STI (sexually transmitted infection) HPV HIGH RNFMCypkusc80/21/2025 3:40 PM GEOSPATIAL INFORMATION SCIENTIST Screening for cervical cancer from Last 3 Months or Most Recently Relevant to Health Maintenance Results * VITAMIN B1 (THIAMINE) BLOOD (07/28/2025 11:10 AM CDT)ComponentValueRef Range Test MethodAnalysis TimePerformed AtPathologist SignatureVITAMIN B1 WHL BLD 196.166.5 - 200.0 nmol/L1 9:08 AM CDTLABCORP [facility] ([facility])Specimen (Source)Anatomical Location / Laterality Collection Method / VolumeCollection TimeReceived TimeBloodBLOOD SPECIMEN / UnknownVenipuncture / Arrlbbv7107/28/2025 11:10 AM CDT1 11:13 AM CDT Narrative [facility] ([facility]) - 08/03/2025 9:08 AM CDT Test(s) 623059-Bls. B1, Whole Blood was developed and its performance characteristics determined by [facility]. It has not been cleared or approved by the Food and Drug Administration. Performed at: ??[address] ??[id number] Rn Ent: Stacy Hampton MD, Phone: ??[phone] Authorizing ProviderResult TypeResult StatusPeter Bueno MDSEND OUTSFinal ResultPerforming OrganizationAddressCity/State/ZIP CodePhone Number [facility] ([facility]) [address] [place] [address], * VITAMIN D 25 (DEFICIENCY) (07/28/2025 11:10 AM CDT)ComponentValueRef RangeTest MethodAnalysis TimePerformed AtPathologist SignatureVITAMIN D TOTAL52.430.0 - 100.0 ng/mL07/28/2025 3:00 PM [facility] LABORATORYSpecimen (Source) Anatomical Location / LateralityCollection Method / VolumeCollection Time Received TimeBloodBLOOD SPECIMEN / UnknownVenipuncture / Isrpmif7907/28/2025 11:10 AM CDT1 11:13 AM CDT Narrative [facility] - 07/28/2025 3:00 PM CDT Deficiency: < 20 ng/mL ? Insufficiency: ? 20 - 30 ng/mL ? Optimum Level: ? 30 - 100 ng/mL ?? Possible Toxicity: > 100 ng/mL Authorizing ProviderResult TypeResult StatusPeter Bueno MDSEND OUTSFinal ResultPerforming OrganizationAddressCity/State/ZIP CodePhone Number [facility] [address] [place] [address] * HEMOGLOBIN (07/28/2025 11:10 AM CDT)ComponentValueRef RangeTest MethodAnalysis TimePerformed AtPathologist LchozhnrwCMXXCIJRER46.012.0 - 16.0 g/dL07/28/2025 11:16 AM [facility] NCUXEWGCPGLFR95.080.0 - 100.0 fL07/28/2025 11:16 AM [facility] LABORATORYSpecimen (Source)Anatomical Location / LateralityCollection Method / VolumeCollection TimeReceived Time BloodBLOOD SPECIMEN / UnknownVenipuncture / Bdxttqw7507/28/2025 11:10 AM CDT 07/28/2025 11:13 AM CDT Narrative Authorizing ProviderResult TypeResult StatusPeter Bueno MDHEMATOLOGYFinal ResultPerforming OrganizationAddressCity/State/ZIP CodePhone Number [facility] [address] [place] [address] * FERRITIN (07/28/2025 11:10 AM CDT)ComponentValueRef RangeTest MethodAnalysis TimePerformed AtPathologist XgmzrilnbLGEDJXWH38.106.24 - 137.00 ng/mL 07/28/2025 3:18 PM [facility] LABORATORYSpecimen (Source)Anatomical Location / LateralityCollection Method / VolumeCollection TimeReceived Time BloodBLOOD SPECIMEN / UnknownVenipuncture / Dwiqvfc3807/28/2025 11:10 AM CDT 07/28/2025 11:13 AM CDT Narrative Authorizing ProviderResult TypeResult StatusPeter Bueno MDCHEMISTRYFinal ResultPerforming OrganizationAddressCity/State/ZIP CodePhone Number [facility] [address] [place] [address] * VITAMIN B12 (07/28/2025 11:10 AM CDT)ComponentValueRef RangeTest Method Analysis TimePerformed AtPathologist SignatureVITAMIN U32250065 - 931 pg/mL 07/28/2025 3:33 PM [facility] LABORATORYSpecimen (Source)Anatomical Location / LateralityCollection Method / VolumeCollection TimeReceived Time BloodBLOOD SPECIMEN / UnknownVenipuncture / Zerowbr6407/28/2025 11:10 AM CDT 07/28/2025 11:13 AM CDT Narrative Authorizing ProviderResult TypeResult StatusPeter Bueno MDCHEMISTRYFinal ResultPerforming OrganizationAddressCity/State/ZIP CodePhone Number [facility] [address] [facility] [place] [address] * BASIC METABOLIC PANEL (07/28/2025 11:10 AM CDT)ComponentValueRef RangeTest MethodAnalysis TimePerformed AtPathologist GzsiieyohJSGAET992812 - 145 mmol/L 07/28/2025 2:36 PM [facility] LABORATORYPOTASSIUM3.73.5 - 5.1 mmol/L 07/28/2025 2:36 PM [facility] NYRQUMFVYAJZPANQGX61804 - 107 mmol/L 07/28/2025 2:36 PM [facility] LABORATORYCO2,PJUYV5881 - 30 MEq/L 07/28/2025 2:36 PM [facility] LABORATORYANION GAP72 - 121 2:36 PM [facility] ISCDFOICCBSYDFYFP3560 - 106 mg/dL07/28/2025 2:36 PM [facility] LABORATORYCALCIUM9.08.4 - 10.2 mg/dL07/28/2025 2:36 PM [facility] ORQNULNMTUTUM71 - 20 mg/dL07/28/2025 2:36 PM [facility] LABORATORYCREATININE0.60.5 - 1.1 mg/dL07/28/2025 2:36 PM [facility] LABORATORYBUN/CREAT ITKQF031 - 221 2:36 PM [facility] LABORATORYeGFR>90>90 mL/min/1.40w04907/28/2025 2:36 PM [facility] LABORATORYComment:As of 01/04/2022, eGFR is calculated by the CKD-EPI creatinine equation without race adjustment. eGFR can be influenced by muscle mass, exercise, and diet. The reported eGFR is an estimation only andis only applicable if the renal function is stable.Specimen (Source)Anatomical Location / LateralityCollection Method / VolumeCollection TimeReceived Time BloodBLOOD SPECIMEN / UnknownVenipuncture / Llqtpjb0407/28/2025 11:10 AM CDT 07/28/2025 11:13 AM CDT Narrative Authorizing ProviderResult TypeResult StatusPeter Bueno MDCHEMISTRYFinal ResultPerforming OrganizationAddressCity/State/ZIP CodePhone Number [facility] [address] [address] * ANTI HCV (02/14/2025 3:35 PM CDT)ComponentValueRef RangeTest MethodAnalysis TimePerformed AtPathologist SignatureHEPATITIS C ANTIBODYNegativeNegative 02/17/2025 10:18 AM [facility] LABORATORYComment:Anti-HCV IgG not detected. Patient is presumed not to be infected with HCV.Specimen (Source) Anatomical Location / LateralityCollection Method / VolumeCollection Time Received TimeBloodBLOOD SPECIMEN / UnknownVenipuncture / Onwseib6102/14/2025 3:35 PM CDT02/14/2025 3:40 PM CDT Narrative Authorizing ProviderResult TypeResult StatusPeter Bueno MDSEND OUTSFinal ResultPerforming OrganizationAddressCity/State/ZIP CodePhone Number [facility] [address] [facility] [address] [place] [address] * ANTI HIV 1/2 (02/14/2025 3:35 PM CDT)ComponentValueRef RangeTest Method Analysis TimePerformed AtPathologist SignatureHIV-1/HIV-2 ANTIBODYNegative Jplfcpbv50/25/2025 5:03 PM [facility] LABORATORYComment:Specimen is negative for anti-HIV-1 and anti-HIV-2.Specimen (Source)Anatomical Location / LateralityCollection Method / VolumeCollection TimeReceived TimeBloodBLOOD SPECIMEN / UnknownVenipuncture / Uselkhi9002/14/2025 3:35 PM CDT02/14/2025 3:40 PM CDT Narrative Authorizing ProviderResult TypeResult StatusPeter Bueno MDSEND OUTSFinal ResultPerforming OrganizationAddressCity/State/ZIP CodePhone Number [facility] [address] [place] [address] * HPV HIGH RISK (12/13/2024 3:40 PM GEOSPATIAL INFORMATION SCIENTIST)ComponentValueRef RangeTest Method Analysis TimePerformed AtPathologist SignatureTYPE 16NegativeNegative 12/17/2024 1:56 PM [facility] LABORATORYTYPE 18 YnvtcpjrNkqlwnjx96/25/2025 1:56 PM [facility]UN[facility] LABORATORYOTHER HIGH RISK ZDVFFZbbftyuaPbijodhz79/25/2025 1:56 PM [facility]STUN[facility] LABORATORYSpecimen (Source)Anatomical Location / LateralityCollection Method / VolumeCollection TimeReceived TimeOther (Cervical)Non-Blood / Ojaoroe3412/13/2024 3:40 PM CST12/15/2024 10:18 AM GEOSPATIAL INFORMATION SCIENTIST Narrative [facility] - 12/17/2024 1:56 PM GEOSPATIAL INFORMATION SCIENTIST HPV types 16, 18, 31, 33, 35, 39, 45, 51, 52, 56, 58, 59, 66 and 68 DNA were undetectable or below the pre-set threshold. Methodology: [employer] [place] 4800 HPV Test Authorizing ProviderResult TypeResult StatusIbeth Gonzales DOMICROBIOLOGYFinal ResultPerforming OrganizationAddressCity/State/ZIP CodePhone Number [facility] [address] [place] [address], from Last 3 Months or Most Recently Relevant to Health Maintenance Insurance * Guarantor: Reji MCADAMS TypeRelation to PatientDate of BirthPhone Billing AddressPersonal/SajgcsMwviyp25/28/1964 [id number] [address], [place] [address] Advance Directives * Full Code (Latest Code Status on File) Date ActivatedDate RywfqzbhnemGupsowyq91/9/2017 10:29 AM09/01/2017 4:20 PM * Full Code Date ActivatedDate GbdptkciyvrAczppbkm53/9/2017 6:04 AM08/31/2017 10:29 AM * Full Code Date ActivatedDate JhaqplvqvwhKfahceye18/17/2013 7:37 AM10/08/2013 1:03 PM Care Teams Team MemberRelationshipSpecialtyStart DateEnd Date Peter Bueno MD [address] [place] [address] PCP - GeneralFamily Practice04/21/25
== END 2025-10-02 01:23 | disposition home or self-care (01) ==
PROVIDERS: Emergency Provider Emergency Medicine
DX: R07.89 Other chest pain (principal)
CPT/HCPCS: 71046; 99283; 99285